=== PATIENT | male | born 1995 | race Caucasian/White ===

== ENCOUNTER 2019-02-16 09:14 | Observation (INO) | payer OTHER ==
[~2019-02-16] VITALS: Ht 180.3 cm; Wt 141.1 kg
--- NOTE | 2019-02-16 09:19 | NUR ---
ATTEMPTED TO BRING PATIENT BACK HOWEVER WAS IN THE BATHROOM
[2019-02-16] MEDS ORDERED: FAMOTIDINE 20 MG (PEPCID) TABLET PO STA (09:42)
[2019-02-16] MEDS ORDERED: ANTACID SUSP 30 ML UDC (MYLANTA) PO ONE (09:45)
[2019-02-16] MEDS ORDERED: ONDANSETRON 4 MG/2 ML (SDV) Z0FRAN IVP ONE (09:45)
[2019-02-16] MEDS ORDERED: LIDOCAINE 2% VISCOUS 15 ML UDC PO ONE (09:45)
[2019-02-16] MEDS ORDERED: LACTATED RINGERS 1,000 ML IV ONE (09:45)
--- NOTE | 2019-02-16 09:46 | ED Abdominal Pain ---
General Chief Complaint: Abdominal/GI Problems Stated Complaint: ABD PAIN Source of Information: Patient, Other (girlfriend) Exam Limitations: No Limitations History of Present Illness Date Seen by Provider: February 16, 2019 Time Seen by Provider: 09:31 Initial Comments Patient presents with his girlfriend by private conveyance to the ER with chief complaint of abdominal pain. He's had no bowel movement for the past 3 days nausea vomiting of bilious emesis and pain in his umbilicus sometimes radiating towards the right side and the epigastric region. He was afraid he might have either an intestinal blockage or appendix inflammation. He was seen yesterday at the ER and [place], [place]. They gave him IV Zofran and Pepcid improved his nausea significantly and he felt well enough to go home. He got a CT scan demonstrating an enlarged appendix but did not look inflamed or infected. He does not have a history of GERD. He's had his gallbladder removed in the past. He says the pains worse in the morning when he woke up but does not seem to be associated with attempting to have a bowel movement or eating. He said his last bowel movement 3 days ago was normal. He did eat yesterday after he got the medicines but still cannot pass a bowel movement. He had nausea and took the sublingual Zofran which did nothing for his nausea. Allergies and Home Medications Allergies Coded Allergies: No Known Drug Allergies (Unverified , 02/16/19) Home Medications Ondansetron 4 Mg Tab.rapdis, 4-8 MG PO Q6H PRN for NAUSEA/VOMITING-1ST LINE Prescribed by: ESCOBAR SOMMERS on 02/16/19 1311 Promethazine HCl 25 Mg Tablet, 25 MG PO Q6H PRN for NAUSEA/VOMITING-2ND LINE Prescribed by: ESCOBAR SOMMERS on 02/16/19 1311 Patient Home Medication List Home Medication List Reviewed: Yes Review of Systems Review of Systems Constitutional: chills, diaphoresis; No fever; malaise EENTM: No Blurred Vision, No Double Vision Respiratory: Denies Cough, Denies Shortness of Air Cardiovascular: Denies Chest Pain, Denies Edema Gastrointestinal: Constipated (3 days); Denies Diarrhea; Nausea, Vomiting Genitourinary: Denies Burning, Denies Drainage Musculoskeletal: No back pain, No joint pain Skin: No pruritus, No rash Psychiatric/Neurological: Denies Headache, Denies Numbness Past Dstnorw-Ixcefx-Tooueu Hx Patient Social History Alcohol Use: Denies Use Recreational Drug Use: Yes Drug of Choice: MARIJUANA Smoking Status: Never a Smoker 2nd Hand Smoke Exposure: No Recent Foreign Travel: No Contact w/Someone Who Travel: No Physical Exam Vital Signs Vital Signs - First Documented 02/16/19 09:28 Temp 97.2 Pulse 60 Resp 18 B/P (MAP) 151/90 (110) Capillary Refill : Height/Weight/BMI Height: '" Weight: lbs. oz. kg; BMI Method: General Appearance: mild distress, obese HEENT: PERRL/EOMI, normal ENT inspection, pharynx normal Respiratory: normal breath sounds, no respiratory distress, no accessory muscle use Cardiovascular: normal peripheral pulses, regular rate, rhythm Peripheral Pulses: 2+ Dorsalis Pedis (R), 2+ Left Dors-Pedis (L) Gastrointestinal: normal bowel sounds, soft, no organomegaly; No rebound; tenderness (epigastric region and umbilicus. Negative for rebound tenderness over McBurney's point, Rovsing sign, so as her other mesenteric signs.) Extremities: normal inspection, normal capillary refill Neurologic/Psychiatric: alert, normal mood/affect, oriented x 3 Skin: normal color, warm/dry Progress/Results/Core Measures Results/Orders Lab Results Laboratory Tests Test 02/16/19 10:15 02/16/19 12:08 Range/Units White Blood Count 8.2 4.3-11.0 10^3/uL Red Blood Count 5.54 4.35-5.85 10^6/uL Hemoglobin 14.9 13.3-17.7 G/DL Hematocrit 44 40-54 % Mean Corpuscular Volume 79 L 80-99 FL Mean Corpuscular Hemoglobin 27 25-34 PG Mean Corpuscular Hemoglobin Concent 34 32-36 G/DL Red Cell Distribution Width 13.4 10.0-14.5 % Platelet Count 274 130-400 10^3/uL Mean Platelet Volume 10.3 7.4-10.4 FL Neutrophils (%) (Auto) 84 H 42-75 % Lymphocytes (%) (Auto) 11 L 12-44 % Monocytes (%) (Auto) 5 0-12 % Eosinophils (%) (Auto) 0 0-10 % Basophils (%) (Auto) 0 0-10 % Neutrophils # (Auto) 6.8 1.8-7.8 X 10^3 Lymphocytes # (Auto) 0.9 L 1.0-4.0 X 10^3 Monocytes # (Auto) 0.4 0.0-1.0 X 10^3 Eosinophils # (Auto) 0.0 0.0-0.3 10^3/uL Basophils # (Auto) 0.0 0.0-0.1 10^3/uL Sodium Level 141 135-145 MMOL/L Potassium Level 3.6 3.6-5.0 MMOL/L Chloride Level 107 98-107 MMOL/L Carbon Dioxide Level 19 L 21-32 MMOL/L Anion Gap 15 H 5-14 MMOL/L Blood Urea Nitrogen 10 7-18 MG/DL Creatinine 0.87 0.60-1.30 MG/DL Estimat Glomerular Filtration Rate > 60 BUN/Creatinine Ratio 11 Glucose Level 138 H 70-105 MG/DL Calcium Level 9.9 8.5-10.1 MG/DL Corrected Calcium 9.6 8.5-10.1 MG/DL Magnesium Level 1.8 1.8-2.4 MG/DL Total Bilirubin 0.4 0.1-1.0 MG/DL Aspartate Amino Transf (AST/SGOT) 24 5-34 U/L Alanine Aminotransferase (ALT/SGPT) 34 0-55 U/L Alkaline Phosphatase 68 40-136 U/L C-Reactive Protein High Sensitivity 0.33 0.00-0.50 MG/DL Total Protein 7.0 6.4-8.2 GM/DL Albumin 4.4 3.2-4.5 GM/DL Lipase 25 8-78 U/L Urine Color JEFFERY H Urine Clarity CLEAR Urine pH 6.5 5-9 Urine Specific [place] 1.015 L 1.016-1.022 Urine Protein 1+ H NEGATIVE Urine Glucose (UA) NEGATIVE NEGATIVE Urine Ketones 3+ H NEGATIVE Urine Nitrite NEGATIVE NEGATIVE Urine Bilirubin NEGATIVE NEGATIVE Urine Urobilinogen 1 NORMAL MG/DL Urine Leukocyte Esterase 1+ H NEGATIVE Urine RBC (Auto) NEGATIVE NEGATIVE Urine RBC NONE /HPF Urine WBC 2-5 /HPF Urine Crystals NONE /LPF Urine Bacteria TRACE /HPF Urine Casts NONE /LPF Urine Mucus SMALL H /LPF Urine Culture Indicated NO My Orders Orders - MATTHIEU,ESCOBAR J Cbc With Automated Diff (02/16/19 09:42) Comprehensive Metabolic Panel (02/16/19 09:42) Hs C Reactive Protein (02/16/19 09:42) Lipase (02/16/19 09:42) Magnesium (02/16/19 09:42) Ua Culture If Indicated (02/16/19 09:42) Ondansetron Injection (Zofran Injectio (02/16/19 09:45) Lidocaine 2% Viscous 15 Ml (Xylocaine Vi (02/16/19 09:45) Famotidine Tablet (Pepcid Tablet) (02/16/19 09:42) Antacid Suspension (Mylanta Suspension (02/16/19 09:45) Lactated Ringers (Lr 1000 Ml Iv Solution (02/16/19 09:45) Ct Abd/Pelv W (Appendicitis) (02/16/19 09:46) Iohexol Injection (Omnipaque 350 Mg/Ml 1 (02/16/19 10:15) Received Contrast (Hold Metformin- Contr (02/16/19 10:15) Promethazine Injection (Phenergan Injec (02/16/19 10:30) Diphenhydramine Injection (Benadryl Inje (02/16/19 13:45) Metoclopramide Injection (Reglan Injecti (02/16/19 13:45) Medications Given in ED Current Medications Medications Dose Ordered Sig/Annette Route Start Time Stop Time Status Last Admin Dose Admin Al Hydrox/Mg Hydrox/Simethicone 30 ml ONCE ONCE PO 02/16/19 09:45 02/16/19 09:46 DC 02/16/19 10:01 30 ML Lactated Ringer's 1,000 ml @ 0 mls/hr Q0M ONCE IV 02/16/19 09:45 02/16/19 09:46 DC 02/16/19 10:06 1,000 MLS/HR Lidocaine HCl 15 ml ONCE ONCE PO 02/16/19 09:45 02/16/19 09:46 DC 02/16/19 10:01 15 ML Ondansetron HCl 8 mg ONCE ONCE IVP 02/16/19 09:45 02/16/19 09:46 DC 02/16/19 10:05 8 MG Promethazine HCl 25 mg ONCE ONCE IVP 02/16/19 10:30 02/16/19 10:31 DC 02/16/19 11:02 25 MG Vital Signs/I&O 02/16/19 09:28 Temp 97.2 Pulse 60 Resp 18 B/P (MAP) 151/90 (110) Progress Progress Note : Time: 13:57 Progress Note Despite 8 mg Zofran, 25 of Phenergan, 10 of Reglan and 25 of Benadryl the pat ient is still having retching and would like to stick around. Dr. Dr. Flower about observing the patient on some IV fluids and he agrees. Diagnostic Imaging Diagonstic Imaging: CT (with IV contrast) Plain Films/CT/US/NM/MRI: abdomen, pelvis Comments [facility], [place] NAME: SHEILA BROWN [facility] REC#: [id number] PT STATUS: REG ER : 1995 PHYSICIAN: ESCOBAR SOMMERS MD ADMIT DATE: 02/16/19/ER Draft Date of Exam:02/16/19 CT ABD/PELV W (APPENDICITIS) PROCEDURE: CT abdomen and pelvis with contrast, rule out appendicitis. TECHNIQUE: Multiple contiguous axial images were obtained through the abdomen and pelvis after the administration of intravenous contrast. INDICATION: Lower abdominal and periumbilical abdominal pain. COMPARISON: None. FINDINGS: Included portions of lung bases are clear. CT abdomen: Normal appendix is identified. Distal small bowel loops are nondistended. There are a few mildly prominent-appearing fluid-filled loops of more proximal small bowel within the right upper abdominal quadrant. At its widest, the small bowel measures approximately 2.9 cm in diameter. Few scattered air-fluid levels are also noted within the more proximal small bowel loops. There is no pneumatosis, pneumoperitoneum, nor portal venous gas. Additionally, there is no free fluid or loculated air-fluid collection within the abdomen. Hyperdense foci are noted within the calyces is felt to most likely be on the basis of early excretion of contrast. Otherwise, kidneys, adrenal glands, pancreas, and liver have a normal CT appearance. Spleen is mildly enlarged measuring 13.8 x 8.9 x 13 cm in size. No focal splenic lesions are identified. No abnormal mesenteric or retroperitoneal adenopathy is seen. Bony structures show no acute abnormalities. CT pelvis: Urinary bladder is grossly unremarkable. There is no loculated fluid collection, free fluid, nor free air within the pelvis. No abnormal lymph nodes are identified. Bony structures show no acute abnormalities. IMPRESSION: 1. Normal appendix. 2. Few prominent loops of proximal small bowel within the right upper abdominal quadrant with a few scattered air-fluid levels. Findings are nonspecific, but can be seen with underlying enteritis or possible focal ileus. 3. Mild splenomegaly. Dictated on workstation # [id number] Dict: 02/16/19 1205 Trans: 02/16/19 1215 [facility] [id number] Interpreted by: JENNI PIPER MD Electronically signed by: Reviewed: Reviewed by Me Departure Communication (Admissions) Time/Spoke to Admitting Phy: 13:14 Discussed the case with Dr. Flower and he agrees to observe the patient with IV fluids and medicines for intractable nausea vomiting secondary to an ileus. Impression Primary Impression: Enteritis Additional Impression: Ileus Disposition: ADMITTED INPATIENT Condition: Stable Admissions Decision to Admit Reason: Admit from ER (General) Decision to Admit/Date: February 16, 2019 Time/Decision to Admit Time: 12:46 Departure-Patient Inst. Referrals: NO,LOCAL PHYSICIAN (PCP) Primary Care Physician Patient Instructions: No Instuctions Given Scripts Ondansetron (Ondansetron Odt) 4 Mg Tab.rapdis 4-8 MG PO Q6H PRN for NAUSEA/VOMITING-1ST LINE, #20 TAB 0 Refills Prov: ESCOBAR SOMMERS 02/16/19 Promethazine HCl (Promethazine Tablet) 25 Mg Tablet 25 MG PO Q6H PRN for NAUSEA/VOMITING-2ND LINE, #20 TAB 0 Refills Prov: ESCOBAR SOMMERS 02/16/19 ESCOBAR SOMMERS February 16, 2019 09:46
[2019-02-16] MEDS ORDERED: HOLD METFORMIN - RECEIVED CONTRAST 20 ML VIAL IV SCH (10:15)
[2019-02-16] MEDS ORDERED: IOHEXOL 350 MG/ML 100 ML (OMNIPAQUE 350) VIAL IV ONE (10:15)
[2019-02-16] MEDS ORDERED: PROMETHAZINE INJ 25 MG/ML (PHENERGAN) AMP IVP ONE (10:30)
[2019-02-16 10:33] LABS: BASOPHILS % (AUTO) 0 % (0-10); EOSINOPHILS % (AUTO) 0 % (0-10); HEMATOCRIT 44 % (40-54); HEMOGLOBIN 14.9 G/DL (13.3-17.7); LYMPHOCYTES # (AUTO) 0.9 X 10^3 (1.0-4.0); LYMPHOCYTES % (AUTO) 11 % (12-44); MEAN CORPUSCULAR HEMOGLOBIN 27 PG (25-34); MEAN CORPUSCULAR HGB CONC 34 G/DL (32-36); MEAN CORPUSCULAR VOLUME 79 FL (80-99); MEAN PLATELET VOLUME 10.3 FL (7.4-10.4); MONOCYTES # (AUTO) 0.4 X 10^3 (0.0-1.0); MONOCYTES % (AUTO) 5 % (0-12); NEUTROPHILS # (AUTO) 6.8 X 10^3 (1.8-7.8); NEUTROPHILS % (AUTO) 84 % (42-75); PLATELET COUNT 274 10^3/uL (130-400); RED CELL DISTRIBUTION WIDTH 13.4 % (10.0-14.5); WHITE BLOOD COUNT 8.2 10^3/uL (4.3-11.0)
[2019-02-16 10:56] LABS: ALANINE AMINOTRANSFERASE 34 U/L (0-55); ALBUMIN 4.4 GM/DL (3.2-4.5); ALKALINE PHOSPHATASE 68 U/L (40-136); BILIRUBIN,TOTAL 0.4 MG/DL (0.1-1.0); BUN/CREATININE RATIO 11; CALCIUM 9.9 MG/DL (8.5-10.1); CARBON DIOXIDE 19 MMOL/L (21-32); CHLORIDE 107 MMOL/L (98-107); CREATININE SERUM 0.87 MG/DL (0.60-1.30); GFR ESTIMATED > 60; GLUCOSE 138 MG/DL (70-105); LIPASE 25 U/L (8-78); MAGNESIUM 1.8 MG/DL (1.8-2.4); POTASSIUM 3.6 MMOL/L (3.6-5.0); SODIUM 141 MMOL/L (135-145)
--- NOTE | 2019-02-16 12:16 | Diagnostic Imaging Report ---
PROCEDURE: CT abdomen and pelvis with contrast, rule out appendicitis. TECHNIQUE: Multiple contiguous axial images were obtained through the abdomen and pelvis after the administration of intravenous contrast. INDICATION: Lower abdominal and periumbilical abdominal pain. COMPARISON: None. FINDINGS: Included portions of lung bases are clear. CT abdomen: Normal appendix is identified. Distal small bowel loops are nondistended. There are a few mildly prominent-appearing fluid-filled loops of more proximal small bowel within the right upper abdominal quadrant. At its widest, the small bowel measures approximately 2.9 cm in diameter. Few scattered air-fluid levels are also noted within the more proximal small bowel loops. There is no pneumatosis, pneumoperitoneum, nor portal venous gas. Additionally, there is no free fluid or loculated air-fluid collection within the abdomen. Hyperdense foci are noted within the calyces is felt to most likely be on the basis of early excretion of contrast. Otherwise, kidneys, adrenal glands, pancreas, and liver have a normal CT appearance. Spleen is mildly enlarged measuring 13.8 x 8.9 x 13 cm in size. No focal splenic lesions are identified. No abnormal mesenteric or retroperitoneal adenopathy is seen. Bony structures show no acute abnormalities. CT pelvis: Urinary bladder is grossly unremarkable. There is no loculated fluid collection, free fluid, nor free air within the pelvis. No abnormal lymph nodes are identified. Bony structures show no acute abnormalities. IMPRESSION: 1. Normal appendix. 2. Few prominent loops of proximal small bowel within the right upper abdominal quadrant with a few scattered air-fluid levels. Findings are nonspecific, but can be seen with underlying enteritis or possible focal ileus. 3. Mild splenomegaly. Dictated by: Dictated on workstation # [id number]
[2019-02-16 12:18] LABS: BILIRUBIN,URINE NEGATIVE (NEGATIVE); CLARITY,URINE CLEAR; COLOR,URINE AMBER; GLUCOSE, URINE (UA) NEGATIVE (NEGATIVE); KETONES,URINE 3+ (NEGATIVE); LEUKOCYTE ESTERASE ,URINE 1+ (NEGATIVE); NITRITE,URINE NEGATIVE (NEGATIVE); PH,URINE 6.5 (5-9); PROTEIN,URINE 1+ (NEGATIVE); UROBILINOGEN,URINE 1 MG/DL (NORMAL)
[2019-02-16 12:25] LABS: BACTERIA,URINE TRACE /HPF
[2019-02-16] MEDS ORDERED: ONDA4TAB11 PO (13:11)
[2019-02-16] MEDS ORDERED: PROM25TA14 PO (13:11)
[2019-02-16] MEDS ORDERED: diphenhydrAMINE 50 MG/ML INJ (BENADRYL) IVP ONE (13:45)
[2019-02-16] MEDS ORDERED: METOCLOPRAMIDE INJ 10 MG/2 ML (REGLAN) IVP ONE (13:45)
--- OUTSIDE RECORDS SUMMARY | 2019-02-16 14:03 | XMS REPORT | Continuity of Care Document ---
Author Organization Unknown Address Unknown Allergies There is no data. Medications There is no data. Problems There is no data. Procedures There is no data. Results There is no data. Encounters ACCT No. Visit Date/Time Discharge Status Pt. Type Provider Facility Loc./Unit Complaint [id number] 02/07/2019 15:15:00 02/07/2019 23:59:59 CLS Outpatient NOLAN TOLBERT DO [facility]
--- NOTE | 2019-02-16 14:32 | NUR ---
Sheila admitted to room 420-1, with an admitting diagnosis of ileus, intractable N/V, on 02/16/19 from ED via wheelchair, accompanied by staff. SHEILA BROWN introduced to surroundings, call light, bed controls, phone, TV, temperature control, lights, meal times, smoking policy, visitor policy, side rail policy, bathrooms and showers. Patient Rights given to patient in the handbook. SHEILA BROWN verbalizes understanding that [facility] is not responsible for the loss or damage to any personal effects or valuables that are kept in the patients possession during their hospitalization. The following Patient Care Plans were discussed with the patient: Discharge Planning, medications, dehydration, and pain management. SHEILA BROWN verbalizes understanding of Interdisciplinary Patient Education. Patient and/or family were informed about the Rapid Response Team and its purpose.
[2019-02-16 14:35] VITALS: BP 115/72
[2019-02-16] MEDS ORDERED: ACETAMINOPHEN 500 MG TAB (TYLENOL) PO PRN (14:45)
[2019-02-16] MEDS ORDERED: KETOROLAC 15 MG/ML VIAL IV PRN (14:45)
[2019-02-16] MEDS ORDERED: CATHETER FLUSH 10 ML SYR IV PRN (14:45)
[2019-02-16] MEDS ORDERED: PROMETHAZINE INJ 25 MG/ML (PHENERGAN) AMP IV PRN (14:45)
--- NOTE | 2019-02-16 14:49 | NUR ---
PATIENT DOES NOT TAKE ANY MEDICATIONS USUALLY. THE ED PRESCRIBED SOME NAUSEA MEDICATIONS TO [facility] [place] HOWEVER HE HAS NOW BEEN ADMITTED. HE USUALLY PREFERS TO USE [facility] IN [place] HOWEVER HAD THOSE SENT TO THE [facility] FOR FASTER [facility]ANDY MOLDER.
[2019-02-16] MEDS: LACTATED RINGERS 1,000 ML IV SCH ×2 (15:57→23:08)
[2019-02-16 16:00] VITALS: BP 118/57
[2019-02-16] MEDS: ONDANSETRON 4 MG/2 ML (SDV) Z0FRAN IV PRN (20:45)
[2019-02-16 20:57] VITALS: BP 115/55
[2019-02-16] MEDS: METOCLOPRAMIDE INJ 10 MG/2 ML (REGLAN) IV PRN (23:14)
[2019-02-16] MEDS: diphenhydrAMINE 50 MG/ML INJ (BENADRYL) IV PRN (23:14)
[2019-02-16 23:31] VITALS: BP 99/52
[2019-02-17 03:53] VITALS: BP 112/58
[2019-02-17] MEDS: ONDANSETRON 4 MG/2 ML (SDV) Z0FRAN IV PRN ×2 (05:28→11:01)
[2019-02-17 05:48] LABS: BASOPHILS % (AUTO) 0 % (0-10); EOSINOPHILS % (AUTO) 1 % (0-10); HEMATOCRIT 41 % (40-54); HEMOGLOBIN 13.5 G/DL (13.3-17.7); LYMPHOCYTES # (AUTO) 2.1 X 10^3 (1.0-4.0); LYMPHOCYTES % (AUTO) 33 % (12-44); MEAN CORPUSCULAR HEMOGLOBIN 27 PG (25-34); MEAN CORPUSCULAR HGB CONC 33 G/DL (32-36); MEAN CORPUSCULAR VOLUME 81 FL (80-99); MEAN PLATELET VOLUME 10.4 FL (7.4-10.4); MONOCYTES # (AUTO) 0.7 X 10^3 (0.0-1.0); MONOCYTES % (AUTO) 10 % (0-12); NEUTROPHILS # (AUTO) 3.6 X 10^3 (1.8-7.8); NEUTROPHILS % (AUTO) 56 % (42-75); PLATELET COUNT 241 10^3/uL (130-400); RED CELL DISTRIBUTION WIDTH 13.7 % (10.0-14.5); WHITE BLOOD COUNT 6.4 10^3/uL (4.3-11.0)
[2019-02-17 06:15] LABS: ALANINE AMINOTRANSFERASE 25 U/L (0-55); ALBUMIN 3.9 GM/DL (3.2-4.5); ALKALINE PHOSPHATASE 56 U/L (40-136); BILIRUBIN,TOTAL 0.5 MG/DL (0.1-1.0); BUN/CREATININE RATIO 8; CALCIUM 9.3 MG/DL (8.5-10.1); CARBON DIOXIDE 25 MMOL/L (21-32); CHLORIDE 104 MMOL/L (98-107); CREATININE SERUM 1.02 MG/DL (0.60-1.30); GFR ESTIMATED > 60; GLUCOSE 100 MG/DL (70-105); POTASSIUM 3.8 MMOL/L (3.6-5.0); SODIUM 140 MMOL/L (135-145); TOTAL PROTEIN 6.1 GM/DL (6.4-8.2)
[2019-02-17] MEDS: LACTATED RINGERS 1,000 ML IV SCH ×2 (07:13→13:27)
[2019-02-17 08:00] VITALS: BP 141/89
[2019-02-17] MEDS: METOCLOPRAMIDE INJ 10 MG/2 ML (REGLAN) IV PRN (08:49)
[2019-02-17] MEDS: diphenhydrAMINE 50 MG/ML INJ (BENADRYL) IV PRN (08:50)
[2019-02-17 12:00] VITALS: BP 101/58
[2019-02-17 13:03] LABS: AMPHETAMINE SCREEN, URINE NEGATIVE (NEGATIVE); BARBITURATE SCREEN URINE NEGATIVE (NEGATIVE); BENZODIAZEPINES SCREEN URINE POSITIVE (NEGATIVE); CANNABINOID SCREEN, URINE POSITIVE (NEGATIVE); COCAINE SCREEN URINE NEGATIVE (NEGATIVE); METHADONE STAT NEGATIVE (NEGATIVE); METHAMPHETAMINE SCREEN URINE S NEGATIVE (NEGATIVE); OPIATE SCREEN URINE NEGATIVE (NEGATIVE); OXYCODONE STAT NEGATIVE (NEGATIVE); PROPOXYPHENE STAT NEGATIVE (NEGATIVE); TRICYCLIC ANTIDEPRESSANTS SCRE NEGATIVE (NEGATIVE)
--- NOTE | 2019-02-17 13:38 | History & Physical-Hospitalist ---
History of Present Illness HPI/Chief Complaint The patient is a 23-year-old white male who was admitted from the emergency room after presenting with intractable vomiting. This is began several days prior to admission. He apparently had been seen in the [place] emergency room and given IV fluids and anti-emetics and was dismissed. He reported that shortly after t he medication wore off he continued to vomit and presented at our emergency room. Date Seen 02/17/19 Time Seen by a Provider: 13:34 Attending Physician Ponce Goldstein MD PCP No,Local Physician Referring Physician Date of Admission February 16, 2019 at 13:59 Home Medications & Allergies Home Medications Reviewed patient Home Medication Reconciliation performed by pharmacy medication reconciliations medical records technician and/or nursing. Patients Allergies have been reviewed. Allergies Allergies Coded Allergies No Known Drug Allergies (Unverified02/16/19) Past Jcmobnn-Bbrulu-Bmafnl Hx Past Med/Social Hx: Reviewed Nursing Past Med/Soc Hx Patient Social History Alcohol Use: Denies Use Recreational Drug Use: Yes Drug of Choice: MARIJUANA Smoking Status: Never a Smoker 2nd Hand Smoke Exposure: No Recent Foreign Travel: No Contact w/other who traveled: No Recent Infectious Disease Expo: No Review of Systems Constitutional: see HPI EENTM: no symptoms reported Respiratory: no symptoms reported Cardiovascular: no symptoms reported Gastrointestinal: abdominal pain, nausea, vomiting Genitourinary: no symptoms reported Musculoskeletal: no symptoms reported Skin: no symptoms reported Psychiatric/Neurological: No Symptoms Reported Physical Exam Physical Exam Vital Signs Vital Signs - First Documented 02/16/19 02/16/19 09:28 14:30 Temp 97.2 Pulse 60 Resp 18 B/P (MAP) 151/90 (110) Pulse Ox 98 Capillary Refill : Less Than 3 Seconds Height, Weight, BMI Height: 5'11.00" Weight: 311lbs. 0.0oz. 141.322900cu; 43.4 BMI Method:Stated General Appearance: No Apparent Distress Eyes: Bilateral Eye Normal Inspection HEENT: Normal ENT Inspection Neck: Normal Inspection Respiratory: Chest Non Tender, Lungs Clear, Normal Breath Sounds, No Accessory Muscle Use, No Respiratory Distress Cardiovascular: Regular Rate, Rhythm, No Edema, No Gallop, No JVD, No Murmur, Normal Peripheral Pulses Gastrointestinal: Normal Bowel Sounds, No Organomegaly, No Pulsatile Mass, Non Tender, Soft Back: Normal Inspection Extremity: Normal Capillary Refill, Normal Inspection, Normal Range of Motion, Non Tender, No Calf Tenderness, No Pedal Edema Neurologic/Psychiatric: Alert, Oriented x3, No Motor/Sensory Deficits, Normal Mood/Affect Skin: Normal Color, Warm/Dry Lymphatic: No Adenopathy Results Results/Procedures Labs Laboratory Tests 02/16/19 10:15 02/17/19 05:00 Patient resulted labs reviewed. Assessment/Plan Admission Diagnosis Intractable nausea and vomiting. Admission Status: Observation Assessment and Plan Note: The urine drug screen was positive for marijuana. The patient is quite open about his regular use. He was informed that in his age group this is one of the underappreciated causes of serial vomiting. He was instructed that he should remain marijuana free for approximately one week as a trial control. Clinical Quality Measures DVT/VTE Risk/Contraindication: Risk Factor Score Per Nursin RFS Level Per Nursing on Admit: 2=Moderate PONCE GOLDSTEIN MD February 17, 2019 13:38
--- NOTE | 2019-02-17 13:43 | Discharge Inst-Simple/Standard ---
Discharge Inst-Standard Patient Instructions/Follow Up Plan of Care/Instructions/FU: Plenty of liquids. 2.refrain from the use of marijuana for 1 week. Activity as Tolerated: Yes Discharge Diet: Eat Small Frequent Meals RICKY GOLDSTEIN MD February 17, 2019 13:42
[2019-02-17 13:53] VITALS: BP 101/58
== END 2019-02-17 13:41 | disposition home or self-care (01) ==
LOC: ER 09:15 → 4TH 13:59 → UNDOADMOB 13:59 → 4TH 14:35 → UNDODISOB 02-17 13:52
PROVIDERS: ADMIT Internal Medicine; ATTEND Internal Medicine
DX: R11.2 Nausea with vomiting, unspecified (principal); F12.90 Cannabis use, unspecified, uncomplicated
CPT/HCPCS: 36415; 74177; 80053; 80306; 81000; 83690; 83735; 85025; 86141; 90471; 96361; 96374; 96375; G0378

== ENCOUNTER 2019-11-12 19:09 | Emergency (ER) | payer OTHER ==
[~2019-11-12] VITALS: Ht 175 cm; Wt 137.0 kg
[~2019-11-12 19:09] MED LIST: ONDA4TAB11 PO; PROM25TA14 PO
[2019-11-12] MEDS ORDERED: ONDANSETRON 4 MG (ZOFRAN) ORAL DISSOLVE TAB SL STA (19:27)
--- NOTE | 2019-11-12 19:38 | ED GI ---
General Chief Complaint: Abdominal/GI Problems Stated Complaint: NASEUA Nursing Triage Note: PT COMPLAINING OF N/V, DIARRHEA AND ABD CRAMPING THAT HAS BEEN GOING ON FOR 3 DAYS Sepsis Screen: No Definite Risk Source of Information: Patient Exam Limitations: No Limitations History of Present Illness Date Seen by Provider: Nov 12, 2019 Time Seen by Provider: 19:23 Initial Comments 24-year-old male presents with "can't keep anything down" patient reports he's had 3 days of nausea, vomiting diarrhea, abdominal cramping. Patient reports that it started out as a cough and a sore throat then today he started having the vomiting and difficulty keeping anything down. Patient has a subjective fever. Patient denies any urinary symptoms. Sakshi shortness of breath or chest pain. Allergies and Home Medications Allergies Coded Allergies: No Known Drug Allergies (Unverified , 02/16/19) Home Medications Ondansetron 4 Mg Tab.rapdis, 4-8 MG PO Q6H PRN for NAUSEA/VOMITING-1ST LINE Prescribed by: ESCOBAR SOMMERS on 02/16/19 1311 Promethazine HCl 25 Mg Tablet, 25 MG PO Q6H PRN for NAUSEA/VOMITING-2ND LINE Prescribed by: ESCOBAR SOMMERS on 02/16/19 1311 Patient Home Medication List Home Medication List Reviewed: Yes Review of Systems Review of Systems Constitutional: fever, malaise EENTM: Throat Pain Respiratory: Cough Cardiovascular: Denies Chest Pain Gastrointestinal: Denies Abdominal Pain; Diarrhea, Nausea, Vomiting Genitourinary: No Symptoms Reported Musculoskeletal: see HPI Skin: no symptoms reported Psychiatric/Neurological: No Symptoms Reported Endocrine: No Symptoms Reported Past Qmeahhe-Zcoepm-Bmiqza Hx Past Med/Social Hx: Reviewed Nursing Past Med/Soc Hx Patient Social History Alcohol Use: Denies Use Recreational Drug Use: Yes Drug of Choice: marijuana Smoking Status: Never a Smoker 2nd Hand Smoke Exposure: No Recent Foreign Travel: No Contact w/Someone Who Travel: No Recent Infectious Disease Expo: No Recent Hopitalizations: No Physical Abuse: No Sexual Abuse: No Mistreated: No Past Medical History Surgeries: Yes Gallbladder Respiratory: No Cardiac: No Neurological: No Genitourinary: No Gastrointestinal: No Musculoskeletal: No Endocrine: No HEENT: No Cancer: No Psychosocial: No Integumentary: No Blood Disorders: No Physical Exam Vital Signs Vital Signs - First Documented 11/12/19 19:17 Temp 36.0 Pulse 58 Resp 16 B/P (MAP) 152/78 (102) Pulse Ox 99 O2 Delivery Room Air Capillary Refill : Less Than 3 Seconds Height/Weight/BMI Height: 5'11.00" Weight: 311lbs. 0.0oz. 141.886634yk; 44.00 BMI Method:Stated General Appearance: WD/WN, no apparent distress Respiratory: lungs clear, normal breath sounds, no respiratory distress Cardiovascular: normal peripheral pulses, regular rate, rhythm Gastrointestinal: non tender, soft Extremities: normal range of motion, non-tender, normal capillary refill Back: no CVA tenderness, no vertebral tenderness Neurologic/Psychiatric: rapier insertion loom fixer II-XII nml as tested, normal mood/affect, oriented x 3 Skin: normal color, warm/dry Progress/Results/Core Measures Results/Orders My Orders Orders - PAULINE WHEELER DO Ondansetron Oral Dissolve Tab (Zofran (11/12/19 19:27) Ed Iv/Invasive Line Start (11/12/19 20:14) Ns Iv 1000 Ml (Sodium Chloride 0.9%) (11/12/19 20:14) Metoclopramide Injection (Reglan Injecti (11/12/19 20:14) Vital Signs/I&O 11/12/19 19:17 Temp 36.0 Pulse 58 Resp 16 B/P (MAP) 152/78 (102) Pulse Ox 99 O2 Delivery Room Air Blood Pressure Mean: 102 Progress Progress Note : Time: 20:29 Progress Note When patient came in. I initially offered IV nausea medication and IV fluids. Patient stated that he would prefer to try oral. Patient was then given an oral Zofran. Patient drank water with no difficulty. Patient states that he "vomited everything up" up until that fluid however there is no vomit in the room. When I went in to discuss patient if he was ready to go since he tolerated fluids he got angry and said" he thought he was going get some hydration" I then told patient that I would give him some IV fluids and IV nausea medication. Patient's demeanor did change however when I walked in and ask him about his marijuana use due to the nausea and a previous ER visit due to cannabis hyperemesis syndrome. When nurse went in to put an IV and give the medication. Patient had left with some other ER patients in the room and left AMA. helpdesk specialist states the patient made, about going to another hospital with a ". About their patient's" patient however was being treated here based on his request when he initially came in which was oral and fluids which he tolerated without difficulties. And once again there were 0 signs of him having any difficulty keeping fluids down. Patient has no vital signs consistent with dehydration with a pulse of 58, good skin turgor, blood pressure 150s over 70s. Departure Impression Primary Impression: Nausea and vomiting Qualified Codes: R11.2 - Nausea with vomiting, unspecified Disposition: 07 AGAINST MEDICAL ADVICE Condition: Stable Departure-Patient Inst. Referrals: NO,LOCAL PHYSICIAN (PCP/Family) Primary Care Physician PAULINE WHEELER DO Nov 12, 2019 19:38
[2019-11-12] MEDS ORDERED: NS IV 1000 ML 1,000 ML IV SCH (20:14)
[2019-11-12] MEDS ORDERED: METOCLOPRAMIDE INJ 10 MG/2 ML (REGLAN) IVP STA (20:14)
--- NOTE | 2019-11-12 20:28 | NUR ---
THIS RN ENTERED PT ROOM TO START IV AND GIVE MEDICATIONS BUT PT NOT IN ROOM AT THIS TIME. THIS RN CHECKED WITH STAFF TO SEE IF PT WAS SEEN LEAVING AND STAFF DID SEE HIM LEAVE.
[2019-11-12 20:35] VITALS: BP 152/78
== END 2019-11-12 20:36 | disposition left against medical advice (07) ==
LOC: EDUNIT# 19:09 → ER FS 19:12
DX: R11.2 Nausea with vomiting, unspecified (principal)
CPT/HCPCS: 99283